=== PATIENT | female | born 1985 | race Caucasian/White ===

== ENCOUNTER 2022-02-07 06:26 | Day surgery (SDC) | payer BC, OTHER ==
[~2022-02-07 06:26] MED LIST: Dextrose 5%-0.45% NaCl 1,000 ML IV SCH; Sodium Chloride 0.9% 10 ML Syringe FLUSH PRN; Sodium Chloride 0.9% 10 ML Syringe FLUSH SCH
[2022-02-07] MEDS ORDERED: Propofol 200 MG/20 ML SDV IV ONE (06:27)
[2022-02-07] MEDS ORDERED: Benzocaine 20% Topical Spray UD ONE ×2 (06:27→06:53)
[2022-02-07] MEDS ORDERED: Lidocaine 1% 30 ML SDV ONE ×2 (06:27→06:55)
[2022-02-07] MEDS ORDERED: Succinylcholine 200 MG/10 ML MDV ONE ×2 (06:53→07:39)
== END 2022-02-07 10:00 | disposition home or self-care (01) ==
LOC: DL.ENDO 06:26
PROVIDERS: ATTEND Internal Medicine Gastroenterology
DX: K29.50 Unspecified chronic gastritis without bleeding (principal); K21.00 Gastro-esophageal reflux disease with esophagitis, without bleeding; E66.09 Other obesity due to excess calories; Z98.890 Other specified postprocedural states
CPT/HCPCS: 87077; A9270-GY; J0330; J2704; J7042